=== PATIENT | female | born 1975 | race Caucasian/White ===

== ENCOUNTER → 2019-07-14 08:45 | Outpatient (CLI) | payer BC, SELFPAY ==
--- NOTE | 2019-07-14 08:50 | XR_ITS ---
PROCEDURE: XR KNEE RT 3V CLINICAL INDICATION: ARTHRALGIA COMPARISON: XR KNEE LT 3V from 07/14/2019 FINDINGS: No fracture or dislocation. No lytic or blastic change. There is normal mineralization. The joint spaces are well-preserved. No significant degenerative/arthritic changes. No erosive changes evident. Other findings:No effusion IMPRESSION: No acute findings. Dictated by: Dr. Tutu Vaughn MD 07/14/2019 12:[address] Tutu Vaughn MD in [place] 07/14/2019 12:56
--- NOTE | 2019-07-14 08:50 | XR_ITS ---
PROCEDURE: XR HAND LT MIN 3V CLINICAL INDICATION: ARTHRALGIA COMPARISON: Right hand same date FINDINGS: No fracture or dislocation. No lytic or blastic change. There is normal mineralization. The joint spaces are well-preserved. No significant degenerative/arthritic changes. No erosive changes evident. Other findings:None. IMPRESSION: No acute findings. Dictated by: Dr. Tutu Vaughn MD 07/14/2019 12:[address] Tutu Vaughn MD in [place] 07/14/2019 12:55
--- NOTE | 2019-07-14 08:50 | XR_ITS ---
PROCEDURE: XR KNEE LT 3V CLINICAL INDICATION: ARTHRALGIA COMPARISON: XR KNEE RT 3V from 07/14/2019 FINDINGS: No fracture or dislocation. No lytic or blastic change. There is normal mineralization. There is minor joint space narrowing medially. The tibial spines appear normal. There is no joint effusion. IMPRESSION: No acute findings. Dictated by: Dr. Tutu Vaughn MD 07/14/2019 12:[address] Tutu Vaughn MD in [place] 07/14/2019 12:58
--- NOTE | 2019-07-14 08:50 | XR_ITS ---
PROCEDURE: XR HAND RT MIN 3V CLINICAL INDICATION: ARTHRALGIA COMPARISON: XR HAND LT MIN 3V from 07/14/2019 FINDINGS: No fracture or dislocation. No lytic or blastic change. There is normal mineralization. The joint spaces are well-preserved. No significant degenerative/arthritic changes. No erosive changes evident. Other findings:None. IMPRESSION: No acute findings. Dictated by: Dr. Tutu Vaughn MD 07/14/2019 12:[address] Tutu Vaughn MD in [place] 07/14/2019 12:54
== END ==
PROVIDERS: PCP Internal Medicine Adolescent Medicine; Visit Provider Internal Medicine Adolescent Medicine
DX: M25.541 Pain in joints of right hand (principal); M25.542 Pain in joints of left hand; M25.562 Pain in left knee; M25.561 Pain in right knee
CPT/HCPCS: 73130; 73562

== ENCOUNTER 2021-07-27 09:00 | Emergency (ER) | payer BC, SELFPAY ==
[2021-07-27 09:10] VITALS: BP 138/110; PULSE 109; RESP 16; TEMP 37; O2SAT 99; BMI 33.5
--- NOTE | 2021-07-27 09:45 | HMH.EDUTC ---
[facility] [place] Clinical Impression: Influenza A Disposition: Home, Self-Care Condition on Discharge: Good Instructions: Influenza, DI for Influenza -- Adult, Oseltamivir Additional Instructions: Drink plenty of fluids. Take tylenol or ibuprofen for pain or fever. Take the medications as directed. Follow up with your regular doctor. GO TO THE ER FOR ANY WORSENING SYMPTOMS Prescriptions: Ondansetron [Zofran 4mg ODT] 4 mg PO Q8HP PRN #20 tab PRN Reason: Nausea Transmission Status: Received by [id number] Benzonatate [Benzonatate 100mg cap] 100 mg PO TIDP PRN #30 cap PRN Reason: Cough Transmission Status: Received by [id number] Oseltamivir Phosphate [Tamiflu 75mg Capsule] 75 mg PO BID #10 cap Transmission Status: Received by [id number] Referrals: Sabino Dos Santos MD [Primary Care Provider] - Forms: Work/School Release Time of Disposition: 10:07 Medical Decision Making - Medical Records Medical records reviewed: No: I reviewed the patient's medical records. - Erik Inquiry Pt receiving controlled substance: No Vital Signs: 07/27/21 09:10 07/27/21 09:55 Temperature 98.6 F 98.6 F Temperature Source Oral Pulse Rate 109 H Pulse Rate [Left] 109 H Respiratory Rate 16 16 Blood Pressure 138/110 H Blood Pressure [Right Arm] 138/110 H Blood Pressure Mean [Right Arm] 119 02 Sat by Pulse Oximetry 99 - Lab Data Lab results reviewed: Yes: I reviewed the patient's lab results. Lab Results 07/27/21 09:42: Influenza Type A Ag Positive A, Influenza Type B Ag Negative 07/27/21 09:42: Strep Scn Rapid Clinic Negative Orders (Tests/Meds): ORDERS Category Date Time Status Strep Screen Confirmation Stat Micro 07/27/21 09:42 Received [facility] [place] - General Stated complaint: head cold Time Seen by Provider: 07/27/21 09:45 Mode of Arrival: Ambulatory Source of Information: Patient Limitations: No Limitations Description of Symptoms (Recalled from Triage Doc. by RN): pt c/o congestion, sore throat, cough, body aches and nasal drainage. x2 days. HEENT Symptoms (Recalled from RN notes): Yes (wnl) Resp Symptoms (Recalled from RN notes): Yes (cough) Skin Symptoms (Recalled from RN notes): No MS Symptoms (Recalled from RN notes): No Functional Status (Recalled from RN notes): wnl - History of Present Illness Provider Complaint: She states that for the past 2 days she has had sinus congestion, sore throat, low grade fever up to 100, chills, and a nonproductive cough. Her daughter has similar symptoms that started at the same time. - Related Data Previous Rx's Medication Instructions Recorded Benzonatate [Benzonatate 100mg 100 mg PO TIDP PRN #30 cap 07/27/21 cap] Ondansetron [Zofran 4mg ODT] 4 mg PO Q8HP PRN #20 tab 07/27/21 Oseltamivir Phosphate [Tamiflu 75 mg PO BID #10 cap 07/27/21 75mg Capsule] Allergies Allergy/AdvReac Type Severity Reaction Status Date / Time No Known Allergies Allergy Verified 07/27/21 09:31 - Worker's Comp Is this a Worker's Comp case?: No [facility] History - Hepatitis A Screen Drug use history?: No High risk sexual behaviors?: No History of sexually transmitted infection?: No Currently employed?: No Childcare worker?: No Do you have indoor plumbing?: Yes Do you have electricity?: Yes Attestation statement:: This patient has been screened for Hepatitis A risk factors. I have reviewed the patient's past medical history: Yes ROS Obtained: Yes All systems reviewed & no additional complaints - Constitutional Constitutional: Reports as per HPI - Eyes Eyes: Denies eye discharge - ENT Ears, Nose, Mouth, and Throat: Reports as per HPI - Cardiovascular Cardiovascular: Denies chest pain - Respiratory Respiratory: Reports chest congestion, Reports cough, Denies dyspnea, Denies stridor, Denies wheezing - Gastrointestinal Gastrointestingal: Reports: nausea. Denies: abdomin
[2021-07-27 09:52] LABS: UTC Strep Screen (Rapid) Negative (Negative)
[2021-07-27 09:53] LABS: UTC Influenza A Antigen Positive (Negative); UTC Influenza B Antigen Negative (Negative)
[2021-07-27 09:55] VITALS: BP 138/110; PULSE 109; RESP 16; TEMP 37
== END 2021-07-27 10:33 | disposition home or self-care (01) ==
PROVIDERS: Emergency Provider Nurse Practitioner Family; PCP Internal Medicine Adolescent Medicine
DX: J10.1 Influenza due to other identified influenza virus with other respiratory manifestations (principal)
CPT/HCPCS: 87804; 87880; 99203; C9803; G0463; U0003; U0005

== ENCOUNTER → 2021-08-13 08:46 | Outpatient (CLI) | payer BC, SELFPAY | PROVIDERS: Visit Provider Nurse Practitioner | DX: Z20.822 Contact with and (suspected) exposure to COVID-19 (principal) | CPT/HCPCS: C9803; U0003; U0005 ==

== ENCOUNTER 2023-01-07 08:00 | Day surgery (SDC) | payer BC, SELFPAY ==
[2022-12-29 11:39] VITALS: BMI 25.8
--- NOTE | 2023-01-07 08:12 | P.PN_ITS ---
[facility] Disclaimer: The information contained in this section may have been updated after the patient was seen, as this information can be updated by other users. Medical History Hypertension Surgical History History of section History of ear surgery Family History Other Colon cancer Family history of cancer Family history of cardiac pacemaker Family history of coronary artery bypass graft Social History Smoking Status: Never smoker alcohol intake: never substance use type: denies use current occupational status: employed Travel in the last 8 weeks: None household members: spouse marital status: education level: master's degree caffeine: No do you feel safe at home: Yes victim of physical abuse: No victim of emotional abuse: No victim of sexual abuse: No would you like helpful sources: No [facility] Anesthesia Checklist Patient Identification Patient Identification: Arm Band and Verbal (Name & ) Structural Data Admitted From: Home Planned Operative Procedure/s: Colonoscopy Consent for Planned Operative Procedure(s) Verified: Yes NPO Status Verified Time NPO: 00:00 Chart Verification Results Verified: HCG Airway Assessment C-Spine Mobility Assessed: Yes TMJ Mobility Assessed: Yes Dentition: Good Dentition Neurological Assessment Level of Consciousness: Awake Hx Seizures: No Numbness or tingling in extremities: No Anesthesia Plan Anesthesia Risk discussed: Yes Anesthesia Plan: Verified ASA Class: II Anesthesia Type: MAC
[2023-01-07 08:23] VITALS: BP 147/94; PULSE 69; RESP 17; TEMP 37.3; O2SAT 100
[2023-01-07 08:23] LABS: Urine Pregnancy, HCG Qual. Negative (Negative)
[2023-01-07 09:07] VITALS: O2SAT 100
--- NOTE | 2023-01-07 09:32 | HMH.SCOPE ---
Procedure: Date: 01/07/23 Patient Date of :: 1975 Procedure Performed:: Colonoscopy Indications:: The patient is a 47 year old who presents for high risk colorectal cancer screening. The patient has a history of colon cancer in a first degree relative (father) Performing Provider:: Anup Willams MD Referring Provider:: Travis Parry MD Sedation:: See RN records Procedure:: After placing the patient in the left lateral decubitus position, the colonoscopy was gently inserted into the rectum and under direct visualization advanced to the cecum which was identified by transillumination in the right lower quadrant, identification of the ileocecal valve, appendiceal orifice, and cecal strap. Color, texture, mucosa, and anatomy of the colon were carefully examined with the scope. Bowel preparation was excellent. Findings:: Anal canal: normal Rectum: Diminutive polyp. Removed with cold forceps Sigmoid colon: normal without polyps or inflammatory changes Descending colon: normal without polyps or inflammatory changes Splenic flexure: normal Transverse colon: normal without polyps or inflammatory changes Hepatic flexure: normal Ascending colon: normal without polyps or inflammatory changes Cecum: normal Terminal ileum: not visualized Impression: Polyp of the rectum Recommendations:: Await pathology results Repeat colonoscopy in 5 years Complications:: None Estimated blood obtained (mL): 0 Colonoscopy Component Colonoscopy Component Was a colonoscopy performed during today's procedure?: Yes Recommended follow up colonoscopy of at least 10 years?: Yes
[2023-01-07 09:35] VITALS: BP 114/78; PULSE 89; RESP 16; TEMP 36.6; O2SAT 97
[2023-01-07 09:45] VITALS: BP 129/81; PULSE 86; RESP 17; O2SAT 99
[2023-01-07 09:55] VITALS: BP 135/92; PULSE 89; RESP 16; O2SAT 99
[2023-01-07 10:05] VITALS: BP 143/91; PULSE 85; RESP 16; O2SAT 98
== END 2023-01-07 10:05 | disposition home or self-care (01) ==
PROVIDERS: PCP Internal Medicine Adolescent Medicine; Visit Provider Internal Medicine
PROC: 0DJD8ZZ Inspection of Lower Intestinal Tract, Via Natural or Artificial Opening Endoscopic (ICD-10-PCS; CPT 45378; principal; 2023-01-07 09:00)
DX: Z80.0 Family history of malignant neoplasm of digestive organs; Z12.11 Encounter for screening for malignant neoplasm of colon; D12.8 Benign neoplasm of rectum
CPT/HCPCS: 45380; 81025

== ENCOUNTER 2023-02-24 08:30 | Outpatient (RCR) | payer BC, SELFPAY ==
--- NOTE | 2023-02-03 11:34 | HMH.PTOPEV ---
PT Outpatient Evaluation Rehab PT Outpatient Evaluation Start: 02/03/23 11:05 Freq: Status: Active Protocol: Document 02/03/23 11:05 HAMIDA (Rec: 02/03/23 11:34 HAMIDA [id number]) E-signed By Mervin Horan, PT Outpatient Therapy Subjective History Subjective History Pt reports h/o chronic bilateral knee pain for ~5 yrs intermittently. Pt reports previous imaging studies have revealed some 'mild arthritis I think'. Pt reports medial aspect right > left knee pain wili. w/ambulation up stairs and on unlevel terrain. Chief Complaint Pain Symptom Type Ache,Dull Symptoms Relieved By Rest/Positioning Symptoms Aggravated By Physical Activity Prior Functional Limitations Squatting,Walking,Stairs Current Functional Limitations Squatting,Walking,Stairs Symptom Description Intermittent Level of pain today (0-10) 0 Pain scale - at its best (0-10) 0 Pain scale - at its worst (0-10) 5 Hip/Knee Eval Gait Observation General Gait Pattern Observation No Deviations/Normal Palpation Tenderness bilateral Knee Palpation Finding Tenderness Knee Palpation Overall Comment 1/4 medial jt line MMT Hip Flexion Strength Grade 5 Normal Hip Abduction Strength Grade 4- Good- Hip Adduction Strength Grade 4 Good Hip Extension Strength Grade 4 Good Hip External Rotation Strength Grade 4 Good Hip Internal Rotation Strength Grade 4 Good Knee Extension Strength Grade 5 Normal Knee Flexion Strength Grade 5 Normal ROM Knee Flexion Active Range of Motion ( 0-150 degrees) Effusion joint effusion knee exam standard bilateral Mid - Patellar Circumerential Measure ( 37.5 cm) Special Tests Knee Vandana Test Negative Left,Negative Right Patellar Grind Test Negative Left,Negative Right Patellar Compression Test Negative Left,Negative Right Outpatient Therapy Assessment Impairments Problems/Impairmments Palpation Tenderness,Impaired Strength,Impaired Walking, Impaired Stair Climbing, Impaired Squatting,Subjective C/O Pain,Impaired Self Care/ Self Management Prognosis Rehab Potential Good Clinical Impression Consistent with Diagnosis Yes Short Term Goals Number of Weeks 4-6 Decreased Palpation Tenderness Yes: 0/4 bilateral knee medial jt line I
== END 2023-02-24 08:35 | disposition home or self-care (01) ==
LOC: PT 08:30
PROVIDERS: PCP Internal Medicine Adolescent Medicine; Visit Provider Internal Medicine Adolescent Medicine
DX: M25.561 Pain in right knee (principal)
CPT/HCPCS: 97010; 97014; 97163; 97530; G0283

== ENCOUNTER 2023-10-23 10:10 | Outpatient (CLI) | payer BC, SELFPAY ==
--- NOTE | 2023-10-23 10:23 | XR_ITS ---
FINAL REPORT CLINICAL HISTORY: PAIN IN KNEE FINDINGS: Left knee Three views were obtained. There is no acute fracture or dislocation. There is mild narrowing of the medial compartment joint space. No joint effusion is identified. No soft tissue abnormality is identified. IMPRESSION: Mild degenerative changes. Reviewed, Interpreted and Dictated by Go Cardona MD Transcribed by Shirin Rodriguez Authenticated and [facility]
--- NOTE | 2023-10-23 10:23 | XR_ITS ---
FINAL REPORT CLINICAL HISTORY: PAIN IN HIP COMPARISON: None FINDINGS: RIGHT HIP Two views of the right hip demonstrate no acute fracture or dislocation. There is an oval density along the posterior acetabulum, this is favored to be degenerative or less likely chronic posttraumatic. There is normal mineralization. IMPRESSION: Bone density along the posterior acetabulum, favor degenerative. Reviewed, Interpreted and Dictated by Conor Simmons MD Transcribed by LOLLY Kowalski Authenticated and [facility]
--- NOTE | 2023-10-23 10:23 | XR_ITS ---
FINAL REPORT CLINICAL HISTORY: PAIN IN HIP COMPARISON: None FINDINGS: LEFT HIP: 3 views of the left hip demonstrate no acute fracture or dislocation. The joint spaces appear normal. The visualized bony structures are well aligned. No soft tissue abnormality is seen. IMPRESSION: No acute bony abnormality. Reviewed, Interpreted and Dictated by Conor Simmons MD Transcribed by LOLLY Kowalski Authenticated and [facility]
--- NOTE | 2023-10-23 10:24 | XR_ITS ---
FINAL REPORT CLINICAL HISTORY: PAIN IN KNEE FINDINGS: Right knee Three views were obtained. There is no acute fracture or dislocation. There is mild narrowing of the medial compartment joint space. No joint effusion is identified. No soft tissue abnormality is identified. IMPRESSION: Mild degenerative changes. Reviewed, Interpreted and Dictated by Go Cardona MD Transcribed by Shirin Rodriguez Authenticated and [facility]
== END 2023-10-23 23:59 ==
LOC: RAD 10:11
PROVIDERS: PCP Internal Medicine Adolescent Medicine; Visit Provider Internal Medicine Adolescent Medicine
DX: M25.551 Pain in right hip (principal); M25.552 Pain in left hip; M25.561 Pain in right knee; M25.562 Pain in left knee
CPT/HCPCS: 73502; 73562